=== PATIENT | male | born 1985 | race Two or more races ===

== ENCOUNTER 2017-01-02 10:50 | Emergency (ER) | payer SELFPAY ==
[2017-01-02] MEDS ORDERED: IBUPROFEN 800 MG TABLET PO ONE (11:45)
[2017-01-02] MEDS ORDERED: PSEUDOEPHEDRINE HCL 30 MG TABLET PO ONE (11:45)
[2017-01-02] MEDS ORDERED: GUAIFENESIN 600 MG TABLET.SA PO ONE (11:45)
[2017-01-02] MEDS ORDERED: LORATADINE 10 MG TABLET PO ONE (11:45)
--- NOTE | 2017-01-02 11:49 | ER Document Report ---
ED ENT - General Chief Complaint: Back Pain Stated Complaint: BACK PAIN Time Seen by Provider: 01/02/17 11:19 Mode of Arrival: Ambulatory Information source: Patient Notes: 31-year-old male presents to ED for complaint of dental pain in the right upper gum which is causing to have back pain. He states he has lost his sense of smell over the last week. States that the pain is keeping him awake. He denies taking anything for pain to include Tylenol Motrin. Patient states he had 3 of his wisdom teeth cut out over the last year and that they gave him antibiotics and everything cleared up there when he finished taking the antibiotics he started getting sick again. He states he does not have a runny nose but there is drainage down the back of his nose. He states he does cough sometimes. Patient was afraid he had pneumonia from his dental extraction. Patient refused use of a food products tester. He states he is able to understand what I am saying. TRAVEL OUTSIDE OF THE [place] IN LAST 30 DAYS: No - HPI Patient complains to provider of: Other - Mouth pain causing pain in his right back Onset: Last week Onset/Duration: Intermittent Quality of pain: Achy Severity: Moderate Pain Level: 3 Location of pain: Tooth, Other - Mouth Associated symptoms: Sinus drainage, Other - States the pain in his mouth is causing him to have right shoulder and back pain because he coughs from the pain in his mouth Similar symptoms previously: Yes - Related Data Allergies/Adverse Reactions: No Known Allergies Allergy (Verified 01/02/17 10:54) Past Medical History - General Information source: Patient - Social History Smoking Status: Current Every Day Smoker Cigarette use (# per day): Yes - Pack per week Chew tobacco use (# tins/day): No Smoking Education Provided: Yes - Less than 2 minutes Frequency of alcohol use: Heavy - 1-3 beer a day Drug Abuse: None Occupation: Logging Lives with: Family Family History: denies: Arthritis, CAD, COPD, CVA, DM, Hyperlipidemia, Hypertension, Malignancy, Thyroid Disfunction Patient has suicidal ideation: No Patient has homicidal ideation: No - Past Medical History Cardiac Medical History: Reports: None Pulmonary Medical History: Reports: Hx Pneumonia EENT Medical History: Reports: Other - Dental Neurological Medical History: Reports: None Endocrine Medical History: Reports: None Renal/ Medical History: Reports: None Malignancy Medical History: Reports None GI Medical History: Reports: None Musculoskeltal Medical History: Reports None Skin Medical History: Reports None Psychiatric Medical History: Reports: None Traumatic Medical History: Reports: None Infectious Medical History: Reports: None Past Surgical History: Reports: Hx Appendectomy, Hx Oral Surgery - Dental surgery Review of Systems - Review of Systems Constitutional: Recent illness. denies: Fever EENT: Sinus discharge, Mouth pain Cardiovascular: No symptoms reported Respiratory: Cough - Causing right back pain up to his shoulder Gastrointestinal: No symptoms reported Genitourinary: No symptoms reported Male Genitourinary: No symptoms reported Musculoskeletal: No symptoms reported Skin: No symptoms reported Hematologic/Lymphatic: No symptoms reported Neurological/Psychological: No symptoms reported -: Yes All other systems reviewed and negative Physical Exam - Vital signs Vitals: Temp Pulse BP Pulse Ox 97.8 F 57 L 149/78 H 98 01/02/17 10:55 01/02/17 10:55 01/02/17 10:55 01/02/17 10:55 Interpretation: Normal - General General appearance: Appears well, Alert - HEENT Head: Normocephalic, Atraumatic Eyes: Normal Pupils: PERRL Ears: Normal External canal: Normal Tympanic membrane: Normal Sinus: Normal Nasal: Purulent discharge, Swelling Mouth/Lips: Other - At this ulcer to the right buccal mucosa Pharynx: Post nasal drainage. No: Erythema, Exudate, Peritonsillar abscess, Retropharyngeal abscess, Tonsillar hypertrophy, Uvular edema, Potential airway comprom. Neck: Normal - Respiratory Respiratory status: No respiratory distress Chest status: Nontender Breath sounds: Normal, Nonproductive cough. No: Rales, Rhonchi, Stridor, Wheezing Chest palpation: Normal - Cardiovascular Rhythm: Regular Heart sounds: Normal auscultation Murmur: No - Abdominal Inspection: Normal Distension: No distension Bowel sounds: Normal Tenderness: Nontender Organomegaly: No organomegaly - Back Back: Normal, Nontender - Extremities General upper extremity: Normal inspection, Nontender, Normal color, Normal ROM , Normal temperature General lower extremity: Normal inspection, Nontender, Normal color, Normal ROM , Normal temperature, Normal weight bearing. No: Immanuel's sign - Neurological Neuro grossly intact: Yes Cognition: Normal Orientation: AAOx4 [place] Coma Scale Eye Opening: Spontaneous [place] Coma Scale Verbal: Oriented [place] Coma Scale Motor: Obeys Commands [place] Coma Scale Total: 15 Speech: Normal Motor strength normal: LUE, RUE, LLE, RLE Sensory: Normal - Psychological Associated symptoms: Normal affect, Normal mood - Skin Skin Temperature: Warm Skin Moisture: Dry Skin Color: Normal Course - Re-evaluation Re-evalutation: 01/02/17 12:38 Cavities noted no infections noted in any of the areas where a tooth was previously pulled he does have an aphthous ulcer to the right upper equal mucosa. He also has postnasal drip and signs and symptoms of a upper respiratory infection causing his decrease in smell and his cough. Discussed viral illness versus bacterial illness with patient and family. Also discussed the fact that antibiotics would not help a viral illness. Patient was treated with Claritin and Sudafed Mucinex and ibuprofen. Patient was discharged home with a prescription for Magic mouthwash, instructions for upper respiratory infections, and instructions for mouthwash. Salt and soda solution. Patient instructed to follow-up with his primary doctor. - Vital Signs Vital signs: Temp Pulse Resp BP Pulse Ox 98.2 F 65 16 135/72 H 98 01/02/17 12:25 01/02/17 12:25 01/02/17 12:25 01/02/17 12:25 01/02/17 12:25 Discharge - Discharge Clinical Impression: Aphthous stomatitis URI (upper respiratory infection) Qualifiers: URI type: unspecified URI Qualified Code(s): J06.9 - Acute upper respiratory infection, unspecified Condition: Stable Disposition: HOME, SELF-CARE Instructions: Family Physicians / Practices Additional Instructions: UPPER RESPIRATORY ILLNESS: You have a viral infection of the respiratory passages -- a "cold." This common infection causes nasal congestion, drainage, and often sore throat and cough. It is highly contagious. The disease usually lasts about 10 to 14 days. There is no "cure" for the viral infection -- it must run its course. If there is a complication, such as bacterial infection in the nose, sinuses, middle ear, or bronchial tubes, antibiotics may be required. The antibiotics won't affect the virus. Drink plenty of fluids. A humidifier may help. An expectorant medication or decongestant may make you more comfortable. Use acetaminophen or ibuprofen for fever or aches. See the doctor if fever persists over two days, if there is any significant worsening of your symptoms, or if you simply fail to improve as expected. DECONGESTANT MEDICATION: A decongestant medicine has been suggested. Often this medicine is combined in the same tablet with an antihistamine or expectorant. This type of medicine is helpful in treating a bad cold or sinus condition, as well as in treatment of the nasal congestion of hay fever. It is not of much benefit for lung infections. Decongestant medicines are related to stimulants. They can cause an increase in blood pressure and heart rate. Persons with heart disease and high blood pressure should not take decongestants without discussing this with the physician. If you develop palpitations, chest pain, headache, or tremors, stop the medicine and consult your physician. COUGH-SUPPRESSANT & EXPECTORANT MEDICATION: You are to use a cough medication as needed for relief of symptoms. This medicine is a combination of an expectorant (to make the mucous thinner and more easily "coughed up") and a cough suppressant (to reduce the frequency of coughing). The cough-suppressant medicine is related to narcotics. You may experience mild nausea and sleepiness. Some patients who are very sensitive to narcotics may have stomach pain from this medicine. Taking the medicine with food reduces these side effects. Do not drive or work with machinery until you know how this medicine affects you. The expectorant should have no side effects. Iodine-containing expectorants (such as organidin) should not be taken by persons with active thyroid disease unless approved by your doctor. Call the doctor if you develop shortness of breath, hives, rash, itching, lightheadedness, or severe nausea and vomiting. USE OF ACETAMINOPHEN (Tylenol): Acetaminophen may be taken for pain relief or fever control. It's much safer than aspirin, offering a wider range of "safe" dosages. It is safe during . Some brand names are Tylenol, Panadol, Datril, Anacin 3, Tempra, and Liquiprin. Acetaminophen can be repeated every four hours. The following are maximum recommended dosages: >89 pounds or adults 650 mg to 900 mg Acetaminophen can be repeated every four hours. Maximum dose not to exceed 4000 mg a day. SMOKING: If you smoke, you should stop smoking. The tar and chemicals in cigarette smoke are harmful. Smoking has been shown to cause: emphysema chronic bronchitis lung cancer mouth and throat cancer stomach and pancreas cancer premature aging defects In addition, smoking increases ear and lung infections in children of smokers. Salt and soda solution 1 quart of water 1 tablespoon of salt 1 teaspoon of baking soda Mixed 3 ingredients together and boil for 1 minute Placed in a covered quart jar Use 1/2 ounce of cold solution to gargle 3 times a day FOLLOW-UP CARE: If you have been referred to a physician for follow-up care, call the physician s office for an appointment as you were instructed or within the next two days. If you experience worsening or a significant change in your symptoms, notify the physician immediately or return to the Emergency Department at any time for re-evaluation. Prescriptions: Nystatin/Dexameth/Diphen [Magic Mouthwash (Omh Formula) Susp] 5 ml PO QID #120 ml Forms: Elevated Blood Pressure, Smoking Cessation Education, Return to Work
[2017-01-02 12:26] VITALS: BP 135/72
== END 2017-01-02 12:05 | disposition home or self-care (01) ==
LOC: ER 10:50
DX: K12.0 Recurrent oral aphthae (principal); J06.9 Acute upper respiratory infection, unspecified; K02.9 Dental caries, unspecified; R05 Cough; M54.9 Dorsalgia, unspecified; M25.511 Pain in right shoulder; R43.9 Unspecified disturbances of smell and taste; R09.89 Other specified symptoms and signs involving the circulatory and respiratory systems; F17.210 Nicotine dependence, cigarettes, uncomplicated; Z71.6 Tobacco abuse counseling; Z87.01 Personal history of pneumonia (recurrent); Z98.890 Other specified postprocedural states
CPT/HCPCS: 99283

== ENCOUNTER 2017-03-13 11:30 | Emergency (ER) | payer SELFPAY ==
--- NOTE | 2017-03-13 11:51 | ER Document Report ---
ED Medical Screen (RME) - General Chief Complaint: Psych Problem Stated Complaint: PSYCH PROBLEM Time Seen by Provider: 03/13/17 11:50 Mode of Arrival: Ambulatory Information source: Patient Notes: 31-year-old male presents with complaints of anxiety suicidal ideations. Patient notes he drinks daily the anxiety is worsened over the past 2 weeks. I have greeted and performed a rapid initial assessment of this patient. A comprehensive ED assessment and evaluation of the patient, analysis of test results and completion of the medical decision making process will be conducted by additional ED providers. PHYSICAL EXAMINATION: GENERAL: Well-appearing, well-nourished and in no acute distress. HEAD: Atraumatic, normocephalic. EYES: Pupils equal round extraocular movements intact, conjunctiva are normal. ENT: Nares patent NECK: Normal range of motion LUNGS: No respiratory distress Musculoskeletal: Normal range of motion NEUROLOGICAL: Normal speech, normal gait. PSYCH: Normal mood, normal affect. SKIN: Warm, Dry, normal turgor, no rashes or lesions noted. TRAVEL OUTSIDE OF THE [place] IN LAST 30 DAYS: No - Related Data Allergies/Adverse Reactions: No Known Allergies Allergy (Verified 03/13/17 11:34) Past Medical History Pulmonary Medical History: Reports: Hx Pneumonia Renal/ Medical History: Denies: Hx Peritoneal Dialysis Past Surgical History: Reports: Hx Appendectomy, Hx Oral Surgery - Dental surgery Physical Exam - Vital signs Vitals: Temp Pulse Resp BP Pulse Ox 98.8 F 73 18 158/83 H 97 03/13/17 11:36 03/13/17 11:36 03/13/17 11:36 03/13/17 11:36 03/13/17 11:36 Course - Vital Signs Vital signs: Temp Pulse Resp BP Pulse Ox 98.8 F 73 18 158/83 H 97 03/13/17 11:36 03/13/17 11:36 03/13/17 11:36 03/13/17 11:36 03/13/17 11:36
[2017-03-13 12:17] LABS: ABSOLUTE BASOPHILS # (AUTO) 0.1 10^3/uL (0.0-0.2); ABSOLUTE EOSINOPHILS # (AUTO) 0.1 10^3/uL (0.0-0.6); ABSOLUTE LYMPHOCYTES (AUTO) 1.5 10^3/uL (0.5-4.7); ABSOLUTE MONOCYTES (AUTO) 0.7 10^3/uL (0.1-1.4); ABSOLUTE NEUT (AUTO) 5.4 10^3/uL (1.7-8.2); EOSINOPHILS % (AUTO) 1.1 % (0-6); HEMATOCRIT 49.4 % (37.9-51.0); HEMOGLOBIN 17.1 g/dL (13.5-17.0); HGB HCT DIFFERENCE 1.9; LYMPHOCYTES % (AUTO) 19.3 % (13-45); MEAN CORPUSCULAR HEMOGLOBIN 31.1 pg (27.0-33.4); MEAN CORPUSCULAR HGB CONC 34.6 g/dL (32.0-36.0); MEAN CORPUSCULAR VOLUME 90 fl (80-97); MONOCYTES % (AUTO) 9.3 % (3-13); SEGMENTED NEUTROPHILS % (AUTO) 69.3 % (42-78); WHITE BLOOD COUNT 7.9 10^3/uL (4.0-10.5)
[2017-03-13 12:39] LABS: APPEARANCE,URINE CLEAR; BILIRUBIN,URINE NEGATIVE (NEGATIVE); GLUCOSE, URINE NEGATIVE (NEGATIVE); KETONES,URINE NEGATIVE (NEGATIVE); LEUKOCYTE ESTERASE,URINE NEGATIVE (NEGATIVE); NITRITE,URINE NEGATIVE (NEGATIVE); PROTEIN,URINE NEGATIVE (NEGATIVE); URINE SPECIFIC GRAVITY 1.025; UROBILINOGEN,URINE NEGATIVE mg/dL (<2.0)
[2017-03-13 12:43] LABS: ALANINE AMINOTRANSFERASE 126 U/L (21-72); ALBUMIN 4.8 g/dL (3.5-5.0); ALCOHOL 15 mg/dL (NONE DETECTED); ALKALINE PHOSPHATASE 139 U/L (38-126); ANION GAP 14 (5-19); ASPARTATE AMINO TRANSFERASE 50 U/L (17-59); BILIRUBIN,DIRECT 0.3 mg/dL (0.0-0.4); BILIRUBIN,TOTAL 0.4 mg/dL (0.2-1.3); BLOOD UREA NITROGEN 12 mg/dL (7-20); CALCIUM 9.8 mg/dL (8.4-10.2); CARBON DIOXIDE 26 mmol/L (22-30); CHLORIDE 104 mmol/L (98-107); CREATININE RESULT 0.78 mg/dL (0.52-1.25); GLUCOSE 100 mg/dL (75-110); POTASSIUM 4.4 mmol/L (3.6-5.0); SODIUM 143.5 mmol/L (137-145)
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
[2017-03-13 12:57] LABS: URINE BARBITURATES SCREEN NEGATIVE; URINE METHADONE SCREEN NEGATIVE; URINE OPIATES LOW NEGATIVE; URINE PHENCYCLIDINE SCREEN NEGATIVE
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
[2017-03-13 15:11] VITALS: BP 149/89
--- NOTE | 2017-03-13 20:32 | EKG REPORT ---
SEVERITY:- NORMAL ECG - SINUS RHYTHM : Confirmed by: Alisson Rea MD 13-Mar-2017 20:31:33
== END 2017-03-13 15:11 | disposition home or self-care (01) ==
LOC: ER 11:30
DX: R45.851 Suicidal ideations (principal); F41.9 Anxiety disorder, unspecified; F32.9 Major depressive disorder, single episode, unspecified; F17.200 Nicotine dependence, unspecified, uncomplicated
CPT/HCPCS: 36415; 80053; 80307; 81001; 85025; 93005; 93010; 99285

== ENCOUNTER 2017-03-17 10:42 | Emergency (ER) | payer SELFPAY ==
[2017-03-17 10:48] VITALS: BP 151/81
--- NOTE | 2017-03-17 10:57 | ER Document Report ---
ED Medical Screen (RME) - General Chief Complaint: Headache, Worst Ever Stated Complaint: HEADACHE Time Seen by Provider: 03/17/17 10:53 Notes: 31-year-old male who presents with a two-week headache. He states it started in the frontal region. He states it got worse on Sunday. He states he was seen here and was given a medicine that "is not working". He states subjective fevers, no weakness or numbness, no blurry vision, nausea without vomiting. TRAVEL OUTSIDE OF THE [place] IN LAST 30 DAYS: No - Related Data Allergies/Adverse Reactions: No Known Allergies Allergy (Verified 03/17/17 10:42) Past Medical History Pulmonary Medical History: Reports: Hx Pneumonia Renal/ Medical History: Denies: Hx Peritoneal Dialysis Past Surgical History: Reports: Hx Appendectomy, Hx Oral Surgery - Dental surgery Physical Exam - Vital signs Vitals: Temp Pulse Resp BP Pulse Ox 98.7 F 71 18 151/81 H 97 03/17/17 10:47 03/17/17 10:47 03/17/17 10:47 03/17/17 10:47 03/17/17 10:47 Course - Vital Signs Vital signs: Temp Pulse Resp BP Pulse Ox 98.7 F 71 18 151/81 H 97 03/17/17 10:47 03/17/17 10:47 03/17/17 10:47 03/17/17 10:47 03/17/17 10:47
--- NOTE | 2017-03-17 11:25 | RADIOLOGY REPORT (SQ) ---
EXAM DESCRIPTION: CT HEAD WITHOUT COMPLETED DATE/TIME: 03/17/2017 11:12 am REASON FOR STUDY: PIT; two weeks of a headache COMPARISON: None. TECHNIQUE: Axial images acquired through the brain without intravenous contrast. Images reviewed wi th bone, brain and subdural windows. Images stored on PACS. All CT scanners at this facility use dose modulation, iterative reconstruction, and/or weight based d osing when appropriate to reduce radiation dose to as low as reasonably achievable (ALARA). [facility]: Dose Right [facility]: CareDose [facility]: Dose Right [facility]: Teradose 4D [facility]: Classana RADIATION DOSE: CT Rad equipment meets quality standard of care and radiation dose reduction techniq ues were employed. CTDIvol: 64.6 mGy. DLP: 1163 mGy-cm. mGy. LIMITATIONS: None. FINDINGS: VENTRICLES: Normal size and contour. CEREBRUM: No masses. No hemorrhage. No midline shift. No evidence for acute infarction. Normal gra y/white matter differentiation. No areas of low density in the white matter. CEREBELLUM: No masses. No hemorrhage. No alteration of density. No evidence for acute infarction. EXTRAAXIAL SPACES: No fluid collections. No masses. ORBITS AND GLOBE: No intra- or extraconal masses. Normal contour of globe without masses. CALVARIUM: No fracture. PARANASAL SINUSES: No fluid or mucosal thickening. SOFT TISSUES: No mass or hematoma. OTHER: No other significant finding. IMPRESSION: NORMAL BRAIN CT WITHOUT CONTRAST. EVIDENCE OF ACUTE STROKE: NO. COMMENT: Quality ID # [id number]: Final reports with documentation of one or more dose reduction techniques (e.g., Automated exposure control, adjustment of the mA and/or kV according to patient size, use of iterative reconstruction technique) TECHNICAL DOCUMENTATION: JOB ID: [id number] [employer]- All Rights Reserved
[2017-03-17] MEDS ORDERED: DIPHENHYDRAMINE HCL 50 MG/ML VIAL IM ONE (11:56)
[2017-03-17] MEDS ORDERED: HALOPERIDOL LACTATE INJ 5 MG/1 ML VIAL IM ONE (11:56)
--- NOTE | 2017-03-17 12:03 | ER Document Report ---
ED General - General Chief Complaint: Headache, Worst Ever Stated Complaint: HEADACHE Time Seen by Provider: 03/17/17 10:53 Mode of Arrival: Ambulatory Information source: Patient, [facility] Records Notes: 31-year-old male who was seen here 4 days prior for suicidal ideations presents with complaints of a headache. He notes the headache has been ongoing for those 4 days, patient denies any fevers or chills denies any nausea vomiting or diarrhea patient admits to continued anxiety as well as insomnia. Patient requested CT of his head because he feels like his head is inflamed and that is bigger on one side than the other TRAVEL OUTSIDE OF THE [place] IN LAST 30 DAYS: No - HPI Onset: Last week Onset/Duration: Persistent Quality of pain: Achy Severity: Moderate Pain Level: 2 Associated symptoms: Headache Exacerbated by: Denies Relieved by: Denies Similar symptoms previously: Yes Recently seen / treated by doctor: Yes - Related Data Allergies/Adverse Reactions: No Known Allergies Allergy (Verified 03/17/17 10:42) Past Medical History - Social History Smoking Status: Never Smoker Cigarette use (# per day): No Chew tobacco use (# tins/day): No Smoking Education Provided: No Frequency of alcohol use: None Drug Abuse: None Family History: Reviewed & Not Pertinent Patient has suicidal ideation: No Patient has homicidal ideation: No Pulmonary Medical History: Reports: Hx Pneumonia Renal/ Medical History: Denies: Hx Peritoneal Dialysis Past Surgical History: Reports: Hx Appendectomy, Hx Oral Surgery - Dental surgery Review of Systems - Review of Systems Notes: REVIEW OF SYSTEMS: CONSTITUTIONAL : Denies fever, chills, or sweats. Denies recent illness. EENT: Denies eye, ear, throat, or mouth pain or symptoms. Denies nasal or sinus congestion or discharge. Denies throat, tongue, or mouth swelling or difficulty swallowing. CARDIOVASCULAR: Denies chest pain. Denies palpitations or racing or irregular heart beat. Denies ankle edema. RESPIRATORY: Denies cough, cold, or chest congestion. Denies shortness of breath, difficulty breathing, or wheezing. GASTROINTESTINAL: Denies abdominal pain or distention. Denies nausea, vomiting , or diarrhea. Denies blood in vomitus, stools, or per rectum. Denies black, tarry stools. Denies constipation. GENITOURINARY: Denies difficulty urinating, painful urination, burning, frequency, blood in urine, or discharge. MUSCULOSKELETAL: Denies back or neck pain or stiffness. Denies joint pain or swelling. SKIN: Denies rash, lesions or sores. HEMATOLOGIC : Denies easy bruising or bleeding. LYMPHATIC: Denies swollen, enlarged glands. NEUROLOGICAL: Admits to headache admits to swelling on one side of his head PSYCHIATRIC: Denies anxiety or stress. Denies depression, suicidal ideation, or homicidal ideation. ALL OTHER SYSTEMS REVIEWED AND NEGATIVE. Dictation was performed using [employer] voice recognition software PHYSICAL EXAMINATION: GENERAL: Well-appearing, well-nourished and in no acute distress. HEAD: Atraumatic, normocephalic. EYES: Pupils equal round and reactive to light, extraocular movements intact, sclera anicteric, conjunctiva are normal. ENT: Nares patent, oropharynx clear without exudates. Moist mucous membranes. NECK: Normal range of motion, supple without lymphadenopathy LUNGS: Breath sounds clear to auscultation bilaterally and equal. No wheezes rales or rhonchi. HEART: Regular rate and rhythm without murmurs ABDOMEN: Soft, nontender, nondistended abdomen. No guarding, no rebound. No masses appreciated. Musculoskeletal: Normal range of motion, no pitting or edema. No cyanosis. NEUROLOGICAL: Cranial nerves grossly intact. Normal speech, normal gait. Normal sensory, motor exams PSYCH: Patient is anxious SKIN: Warm, Dry, normal turgor, no rashes or lesions noted. Physical Exam - Vital signs Vitals: Temp Pulse Resp BP Pulse Ox 98.7 F 71 18 151/81 H 97 03/17/17 10:47 03/17/17 10:47 03/17/17 10:47 03/17/17 10:47 03/17/17 10:47 Course - Re-evaluation Re-evalutation: 03/17/17 12:01 Patient is in fact not having the worst headache of his life, he is quite clear about this, patient appears to have psychiatric issues and believes that his one service has inflamed, he will be treated for his headache CT of the head was performed at his request and was negative I discussed the use of a lumbar puncture and he defers I spoke with the patient at length in regards to having a lumbar puncture performed. Pt was told the risks and benefits of the procedure in length. I do not believe the patient should leave without the LP being performed but the patient is alert oriented x4, understands the risks and benefits of staying and leaving including disability and . Pt understands that he can return at any time for further care and is more than welcome to do so. 03/17/17 14:54 Patient notes that he has not been sleeping the last few days, notes he has been quite anxious After performing a Medical Screening Examination, I estimate there is LOW risk for ACUTE GLAUCOMA, TEMPORAL ARTERITIS, MENINGITIS, INCRANIAL HEMORRHAGE, or ISCHEMIC STROKE thus I consider the discharge disposition reasonable. I have reevaluated this patient multiple times and no significant life threatening changes are noted. The patient and I have discussed the diagnosis and risks, and we agree with discharging home with close follow-up with the understanding that symptoms and presentations can change. We also discussed returning to the Emergency Department immediately if new or worsening symptoms occur. We have discussed the symptoms which are most concerning (e.g., changing or worsening symptoms, new numbness or weakness, vomiting, fever) that necessitate immediate return. 03/17/17 14:55 - Vital Signs Vital signs: Temp Pulse Resp BP Pulse Ox 98.7 F 71 18 151/81 H 97 03/17/17 10:47 03/17/17 10:47 03/17/17 10:47 03/17/17 10:47 03/17/17 10:47 - Diagnostic Test Radiology reviewed: Image reviewed, Reports reviewed - No acute abnormality Discharge - Discharge Clinical Impression: Anxiety Headache Qualifiers: Headache type: unspecified Headache chronicity pattern: unspecified pattern Intractability: not intractable Qualified Code(s): R51 - Headache Insomnia Qualifiers: Insomnia type: primary Qualified Code(s): F51.01 - Primary insomnia Condition: Stable Disposition: HOME, SELF-CARE Instructions: Headache ([facility]) Additional Instructions: Please follow-up with the care plan provide to you by our mental health team return immediately if there are any other concerns Prescriptions: Zolpidem Tartrate [Ambien] 10 mg PO QPM #10 tablet
--- NOTE | 2017-03-17 13:37 | PSYCHOLOGICAL NOTE ---
Psych Note - Psych Note Psych Note: * Reason for consult: Anxiety * Consents given: (present) 31-year-old male who presents with a two-week headache. He states it started in the frontal region. He states it got worse on Sunday. He states he was seen here and was given a medicine that "is not working". Patient disclosed that he has an appointment with [facility] on the . He denies current suicidal ideation stating "only that day"referring to [facility] ED previous visit. Patient discloses he has had a headache and having trouble sleeping for the last 4 days. He states the medication is not working. Patient showed clinician medication bottles of medications that were prescribed to him during his 03/13/2017 [facility] ED visit. Clinician notes only 5 pills remaining out of 14 in the Celexa prescription and 9-1/2 pills out of 18 in BuSpar prescription. Patient states that he had been taking the extra medication to try to help him sleep. Clinician explained the difference between as needed medication versus scheduled medications and fast acting medications versus extended release. Patient asked for assistance in sleep; attending physician made aware. [place] Controlled Registry was checked during previous [facility] ED visit on 03/13/2017. The registry shows the patient does not have a history of obtaining controlled substances. Patient was alert and oriented to person, place, time and circumstance. Mood was euthymic with congruent affect. Patient denied suicidal ideation, stating "only that day." Delusions are absent behaviors congruent with intact reality based presentation i.e. organized, linear, rational thinking. Eye contact was well-maintained. Conversational speech was within normal limits for rate, tone ; It is noted the patient's first language is Kinyarwanda. Intellectual abilities were estimated to be in the average range. attention and concentration are good. Insight, judgment and impulse control were fair. Patient gave verbal consent to speak to his who was at bedside. Patient's agreed to discharge plan and agreed to assist the patient in obtaining and maintaining treatment and medication. 1. 296.20 (F32.9) Unspecified Depressive Disorder 2. 291.9 (F10.99) Unspecified Alcohol Related Disorder 3. 300.02 (F41.1) Generalized Anxiety Disorder Plan/Impression: Patient is psychiatrically cleared. Patient does not meet IVC criteria per [place] GS 122C. Patient denied suicidal ideation, intent or plan at this time. Behaviors are congruent with intact reality based presentation. Clinician conducted medication education (take medications as prescribed); it is currently believed there was a communication/ translation issue with his medication. Patient thought the medications would help him sleep. Patient has an outpatient mental health appointment with [facility] on 03/28/2017. Dr. Bonds was consulted in the care and management of this patient; attending physician is in agreement with recommendation and disposition.
== END 2017-03-17 13:10 | disposition home or self-care (01) ==
LOC: ER 10:42
DX: R51 Headache (principal); F41.9 Anxiety disorder, unspecified; F51.01 Primary insomnia
CPT/HCPCS: 99285; 96372; 70450; J1200; J1630

== ENCOUNTER 2019-11-03 12:29 | Emergency (ER) | payer SELFPAY ==
--- NOTE | 2019-11-03 13:32 | ER Document Report ---
ED Medical Screen (RME) - General Chief Complaint: Abdominal Pain Stated Complaint: FLANK PAIN Time Seen by Provider: 11/03/19 13:30 Mode of Arrival: Ambulatory Information source: Patient Notes: 34-year-old male presented to ED for right upper quadrant abdominal pain. He does have tenderness to the area of the gallbladder. He states he is not having any nausea vomiting or any fever. He states he does smoke a pack a day drinks weekly and does not use any illicit drugs. He states he does take medications for anxiety and he has had pneumonia in the past. We will get blood and urine and ultrasound of the gallbladder and have evaluated by another provider. I have greeted and performed a rapid initial assessment of this patient. A comprehensive ED assessment and evaluation of the patient, analysis of test results and completion of medical decision making process will be conducted by an additional ED providers. TRAVEL OUTSIDE OF THE [place] IN LAST 30 DAYS: No - Related Data Allergies/Adverse Reactions: No Known Allergies Allergy (Verified 03/17/17 10:42) Past Medical History Pulmonary Medical History: Reports: Hx Pneumonia Renal/ Medical History: Denies: Hx Peritoneal Dialysis Past Surgical History: Reports: Hx Appendectomy, Hx Oral Surgery - Dental surgery Physical Exam - Vital signs Vitals: Temp Pulse Resp BP Pulse Ox 98.2 F 72 16 152/78 H 100 11/03/19 12:38 11/03/19 12:38 11/03/19 12:38 11/03/19 12:38 11/03/19 12:38 Course - Vital Signs Vital signs: Temp Pulse Resp BP Pulse Ox 98.2 F 72 16 152/78 H 100 11/03/19 13:21 11/03/19 12:38 11/03/19 12:38 11/03/19 12:38 11/03/19 12:38
--- NOTE | 2019-11-03 14:46 | RADIOLOGY REPORT (SQ) ---
EXAM DESCRIPTION: U/S ABDOMEN LIMITED W/O DOP IMAGES COMPLETED DATE/TIME: 11/03/2019 2:35 pm REASON FOR STUDY: Right upper quadrant abdominal pain pain on palpat COMPARISON: None. TECHNIQUE: Dynamic and static grayscale images acquired of the abdomen and recorded on PACS. Pitero arslan selected color Doppler and spectral images recorded. LIMITATIONS: None. FINDINGS: PANCREAS: No masses. Visualized pancreatic duct normal caliber. LIVER: No masses. Echotexture normal. LIVER VASCULATURE: Normal directional flow of the main portal vein and hepatic veins. GALLBLADDER: Contracted. No stones are seen. ULTRASOUND-DETECTED ROSE'S SIGN: Negative. INTRAHEPATIC DUCTS AND COMMON DUCT: CBD and intrahepatic ducts normal caliber. No filling defects. AORTA: No aneurysm. RIGHT KIDNEY: Normal size, 10.9 cm. Normal echogenicity. No solid or suspicious masses. No hydroneph rosis. No calcifications. PERITONEAL AND RIGHT PLEURAL SPACE: No ascites or effusions. OTHER: No other significant findings. IMPRESSION: Contracted gallbladder without stones. No acute finding. TECHNICAL DOCUMENTATION: JOB ID: [id number] [employer]- All Rights Reserved Reading location - IP/workstation name: [email or web address]
[2019-11-03 14:50] LABS: ABSOLUTE BASOPHILS # (AUTO) 0.1 10^3/uL (0.0-0.2); ABSOLUTE EOSINOPHILS # (AUTO) 0.2 10^3/uL (0.0-0.6); ABSOLUTE LYMPHOCYTES (AUTO) 1.5 10^3/uL (0.5-4.7); ABSOLUTE MONOCYTES (AUTO) 0.9 10^3/uL (0.1-1.4); ABSOLUTE NEUT (AUTO) 4.5 10^3/uL (1.7-8.2); BASOPHILS % (AUTO) 1.2 % (0-2); EOSINOPHILS % (AUTO) 2.6 % (0-6); HEMATOCRIT 46.3 % (37.9-51.0); LYMPHOCYTES % (AUTO) 20.7 % (13-45); MEAN CORPUSCULAR HEMOGLOBIN 31.4 pg (27.0-33.4); MEAN CORPUSCULAR HGB CONC 34.6 g/dL (32.0-36.0); MEAN CORPUSCULAR VOLUME 91 fl (80-97); MONOCYTES % (AUTO) 11.9 % (3-13); PLATELET COUNT 179 10^3/uL (150-450); RED BLOOD COUNT 5.09 10^6/uL (4.35-5.55); RED CELL DISTRIBUTION WIDTH 13.7 % (11.5-14.0); SEGMENTED NEUTROPHILS % (AUTO) 63.6 % (42-78); TOTAL CELLS COUNTED % (AUTO) 100 %; WHITE BLOOD COUNT 7.1 10^3/uL (4.0-10.5)
[2019-11-03 14:52] LABS: APPEARANCE,URINE CLEAR; BILIRUBIN,URINE NEGATIVE (NEGATIVE); COLOR,URINE YELLOW; GLUCOSE, URINE NEGATIVE (NEGATIVE); KETONES,URINE NEGATIVE (NEGATIVE); LEUKOCYTE ESTERASE,URINE NEGATIVE (NEGATIVE); NITRITE,URINE NEGATIVE (NEGATIVE); PROTEIN,URINE NEGATIVE (NEGATIVE); URINE SPECIFIC GRAVITY 1.018
[2019-11-03 15:15] LABS: ALBUMIN 4.6 g/dL (3.5-5.0); ALKALINE PHOSPHATASE 113 U/L (38-126); ANION GAP 6 (5-19); ASPARTATE AMINO TRANSFERASE 30 U/L (17-59); BILIRUBIN,TOTAL 0.5 mg/dL (0.2-1.3); BLOOD UREA NITROGEN 10 mg/dL (7-20); CALCIUM 9.2 mg/dL (8.4-10.2); CARBON DIOXIDE 30 mmol/L (22-30); CHLORIDE 104 mmol/L (98-107); GLUCOSE 92 mg/dL (75-110); POTASSIUM 4.1 mmol/L (3.6-5.0); TOTAL PROTEIN 7.7 g/dL (6.3-8.2)
[2019-11-03] MEDS ORDERED: IBUPROFEN 800 MG TABLET PO ONE (15:36)
--- NOTE | 2019-11-03 15:38 | ER Document Report ---
ED GI/ - General Chief Complaint: Abdominal Pain Stated Complaint: FLANK PAIN Time Seen by Provider: 11/03/19 13:30 Primary Care Provider: [facility] [Provider Group] - Follow up as needed [facility] [Provider Group] - Follow up as needed [facility] [Provider Group] - Follow up tomorrow Mode of Arrival: Ambulatory Information source: Patient Notes: Patient presents complaining of right upper quadrant abdominal pain that started yesterday. Patient denies any fever, nausea or vomiting. Patient states pain is worse with movement. Patient denies any cough or cold symptoms. Patient denies any urinary symptoms. TRAVEL OUTSIDE OF THE [place] IN LAST 30 DAYS: No - HPI Patient complains to provider of: Abdominal pain Onset: Yesterday Timing/Duration: Persistent Quality of pain: Achy Pain Level: 3 Location: RUQ Associated symptoms: denies: Fever, Nausea, Urinary hesitancy, Urinary frequency, Urinary retention, Urinary urgency, Vomiting Exacerbated by: Movement Relieved by: Denies Similar symptoms previously: No Recently seen / treated by doctor: No - Related Data Allergies/Adverse Reactions: No Known Allergies Allergy (Verified 03/17/17 10:42) Past Medical History - General Information source: Patient - Social History Smoking Status: Current Every Day Smoker Frequency of alcohol use: Occasional Drug Abuse: None Occupation: [employer] supervisor Family History: Reviewed & Not Pertinent Pulmonary Medical History: Reports: Hx Pneumonia Renal/ Medical History: Denies: Hx Peritoneal Dialysis Psychiatric Medical History: Reports: Hx Anxiety Past Surgical History: Reports: Hx Appendectomy, Hx Oral Surgery - Dental surgery Review of Systems - Review of Systems Constitutional: No symptoms reported. denies: Fever EENT: No symptoms reported Cardiovascular: No symptoms reported Respiratory: No symptoms reported. denies: Cough Gastrointestinal: Abdominal pain - Right upper quadrant tenderness. denies: Vomiting Genitourinary: No symptoms reported Male Genitourinary: No symptoms reported Musculoskeletal: No symptoms reported Skin: No symptoms reported Hematologic/Lymphatic: No symptoms reported Neurological/Psychological: No symptoms reported Physical Exam - Vital signs Vitals: Temp Pulse Resp BP Pulse Ox 98.2 F 72 16 152/78 H 100 11/03/19 12:38 11/03/19 12:38 11/03/19 12:38 11/03/19 12:38 11/03/19 12:38 - General General appearance: Appears well, Alert In distress: None - HEENT Head: Normocephalic, Atraumatic Eyes: Normal Conjunctiva: Normal Nasal: Normal Mouth/Lips: Normal Mucous membranes: Normal Neck: Normal, Supple. No: Lymphadenopathy - Respiratory Respiratory status: No respiratory distress Chest status: Tender, Pain on movement, Pain with deep breathing Breath sounds: Normal. No: Nonproductive cough, Productive cough, Rales, Rhonchi, Stridor, Wheezing Chest palpation: Tender - Underneath the anterior lower costal margin on the right - Cardiovascular Rhythm: Regular Heart sounds: S1 appreciated, S2 appreciated - Abdominal Inspection: Normal Distension: No distension Bowel sounds: Normal Tenderness: Tender - Right upper quadrant tenderness Organomegaly: No organomegaly - Back Back: Tender - Right lower thoracic tenderness with faint area of ecchymosis. No: CVA tenderness, Vertebra tenderness - Extremities General upper extremity: Normal inspection, Nontender, Normal strength General lower extremity: Normal inspection, Nontender, Normal strength - Neurological Neuro grossly intact: Yes Cognition: Normal Erwin Coma Scale Eye Opening: Spontaneous Tina Coma Scale Verbal: Oriented Erwin Coma Scale Motor: Obeys Commands Tina Coma Scale Total: 15 - Psychological Associated symptoms: Normal affect, Normal mood - Skin Skin Temperature: Warm Skin Moisture: Dry Skin Color: Normal Course - Re-evaluation Re-evalutation: 11/03/19 16:10 No acute findings on diagnostic evaluation. Patient without any leukocytosis or elevation in LFTs. Patient's pain is reproducible with palpation and rotational movement of the trunk. Suspect likely chest wall pain at this time. Patient does have faint area of ecchymosis to the posterior right thoracic back area. Patient encouraged to return immediately for any new or worsening symptoms or if he is not improving. Patient encouraged to follow-up with a primary doctor for further evaluation on outpatient basis. - Vital Signs Vital signs: Temp Pulse Resp BP Pulse Ox 98 F 70 20 148/78 H 100 11/03/19 17:02 11/03/19 17:02 11/03/19 17:02 11/03/19 17:02 11/03/19 17:02 - Laboratory Result Diagrams: 11/03/19 13:57 11/03/19 13:57 Laboratory results interpreted by me: 11/03/19 13:57 Urine Urobilinogen 2.0 H 11/03/19 16:10 Labs- All tests 24 hr 11/03/19 11/03/19 11/03/19 13:57 13:57 13:57 WBC 7.1 RBC 5.09 Hgb 16.0 Hct 46.3 MCV 91 MCH 31.4 MCHC 34.6 RDW 13.7 Plt Count 179 Lymph % (Auto) 20.7 [place] % (Auto) 11.9 Eos % (Auto) 2.6 Baso % (Auto) 1.2 Absolute Neuts (auto) 4.5 Absolute Lymphs (auto) 1.5 Absolute Monos (auto) 0.9 Absolute Eos (auto) 0.2 Absolute Basos (auto) 0.1 Seg Neutrophils % 63.6 Sodium 140.1 Potassium 4.1 Chloride 104 Carbon Dioxide 30 Anion Gap 6 BUN 10 Creatinine 0.66 Est GFR ( Amer) > 60 Est GFR (MDRD) Non-Af > 60 Glucose 92 Calcium 9.2 Total Bilirubin 0.5 Direct Bilirubin 0.0 Neonat Total Bilirubin Not Reportable Neonat Direct Bilirubin Not Reportable Neonat Indirect Bili Not Reportable AST 30 ALT 41 Alkaline Phosphatase 113 Total Protein 7.7 Albumin 4.6 Lipase 62.8 Urine Color YELLOW Urine Appearance CLEAR Urine pH 7.0 Ur Specific [place] 1.018 Urine Protein NEGATIVE Urine Glucose (UA) NEGATIVE Urine Ketones NEGATIVE Urine Blood NEGATIVE Urine Nitrite NEGATIVE Urine Bilirubin NEGATIVE Urine Urobilinogen 2.0 H Ur Leukocyte Esterase NEGATIVE Urine WBC (Auto) 1 Urine RBC (Auto) 2 Urine Mucus (Auto) RARE Urine Ascorbic Acid NEGATIVE - Diagnostic Test Radiology reviewed: Image reviewed, Reports reviewed Discharge - Discharge Clinical Impression: Right upper quadrant abdominal pain, Chest wall pain Condition: Stable Disposition: HOME, SELF-CARE Instructions: Abdominal Pain ([facility]), Anti-Inflammatory Medication ([facility]), Chest Wall Pain ([facility]), Muscle Relaxers ([facility]) Additional Instructions: Return immediately for any new or worsening symptoms Followup with your primary care provider, call tomorrow to make a followup appointment Prescriptions: Cyclobenzaprine HCl [Flexeril 10 Mg Tablet] 10 mg PO TID #15 tablet Lidocaine [Lidoderm 5% (700 mg) Transdermal Patch] 1 patch TP DAILY PRN #10 adh..patch PRN Reason: Naproxen [Naprosyn 250 Nmg Tablet] 1 tab PO BID #14 tablet Forms: Return to Work Referrals: [facility] [Provider Group] - Follow up as needed [facility] [Provider Group] - Follow up as needed [facility] [Provider Group] - Follow up tomorrow
--- NOTE | 2019-11-03 16:01 | RADIOLOGY REPORT (SQ) ---
EXAM DESCRIPTION: ACUTE ABDOMEN SERIES IMAGES COMPLETED DATE/TIME: 11/03/2019 3:53 pm REASON FOR STUDY: RUQ, r thoracic back pain COMPARISON: None. NUMBER OF VIEWS: Three views. TECHNIQUE: Frontal chest, supine abdomen and upright/decubitus abdomen radiographic images acquired. LIMITATIONS: None. FINDINGS: CHEST: Lungs clear of infiltrates. FREE AIR: None. No abnormal gas collections. BOWEL GAS PATTERN: Nonobstructive pattern. No dilated loops or air fluid levels. CALCIFICATIONS: No suspicious calcifications. HARDWARE: None in the abdomen. SOFT TISSUES: No gross mass or suggestion of organomegaly. BONES: No acute fracture. No worrisome bone lesions. OTHER: No other significant finding. IMPRESSION: NO RADIOGRAPHIC EVIDENCE FOR ACUTE ABDOMINAL DISEASE. TECHNICAL DOCUMENTATION: JOB ID: [id number] 2010 [employer]- All Rights Reserved Reading location - IP/workstation name: [email or web address]
[2019-11-03] MEDS ORDERED: LIDOCAINE 5% (700 MG) TRANSDERMAL ADH..PATCH TP ONE (16:12)
[2019-11-03 17:03] VITALS: BP 148/78
== END 2019-11-03 17:02 | disposition home or self-care (01) ==
LOC: ER 12:29
DX: K82.0 Obstruction of gallbladder (principal); R07.89 Other chest pain; R10.11 Right upper quadrant pain; R10.811 Right upper quadrant abdominal tenderness; R58 Hemorrhage, not elsewhere classified; F17.200 Nicotine dependence, unspecified, uncomplicated
CPT/HCPCS: 36415; 74022; 76705; 80053; 81001; 83690; 85025; 99285